=== PATIENT | female | born 1995 | race American Indian/Alaskan Native ===

== ENCOUNTER 2018-01-16 23:47 | Emergency (ER) | payer SELFPAY ==
[2018-01-17] VITALS: RESP 18; O2SAT 98
[2018-01-17] MEDS ORDERED: Acetaminophen 650mg/20.3ml solution UD PO STA (00:16)
--- NOTE | 2018-01-17 00:50 | ED PDOC ---
Arrival/HPI - General Historian: Patient - History of Present Illness Time/Duration: > month Symptom Onset: Gradual Symptom Course: Unchanged, Worsening Quality: Aching, Pressure, Tightness Severity Level: 6 Activities at Onset: Rest Context: Home <Yara Salmeron - Last Filed: 01/17/18 02:30> <Jessica Alejo - Last Filed: 01/17/18 06:47> - General Chief Complaint: ENT Problem Time Seen by Provider: 01/17/18 00:14 - History of Present Illness Narrative History of Present Illness (Text): 01/17/18 00:44 Pt is a 22 yr old female who presents to the ED c/o sore and swollen throat and fever x 3 months. Pt was evaluated by her PMD 3 months ago and was given azithromycin x 5 days which brought mild relief but continued to have throat irritation that waxed and waned. Pt continued to have swelling and sore throat, was placed on Augmentin 875mg x 10 days. Pt is currently on Day 3 BID but has vomited one of the doses this morning. Pt also reports headache at times, bilateral ear pain, and nausea. Denies, chest pain, sob, diarrhea, dyspnea, drooling, inability to eat or drink, change in bladder or bowel. (Yara Salmeron) Past Medical History - Provider Review Nursing Documentation Reviewed: Yes - Travel History Have you recently traveled outside [place] w/in the past 3 mons?: No - Psychiatric Hx Substance Use: No <Yara Salmeron - Last Filed: 01/17/18 02:30> Family/Social History - Physician Review Nursing Documentation Reviewed: Yes Family/Social History: Unknown Family HX Smoking Status: Never Smoked Hx Alcohol Use: No Hx Substance Use: No <Yara Salmeron - Last Filed: 01/17/18 02:30> Allergies/Home Meds <Yara Salmeron - Last Filed: 01/17/18 02:30> <Jessica Alejo - Last Filed: 01/17/18 06:47> Allergies/Adverse Reactions: Allergies No Known Allergies Allergy (Verified 01/16/18 23:58) Home Medications: Home Meds Medication Instructions Recorded Confirmed Amoxicillin/Clavulanate [Augmentin 1 tab PO BID 01/16/18 01/16/18 875 MG-125 MG] Review of Systems - Review of Systems Constitutional: Normal, Fatigue, Fevers Eyes: Normal ENT: Normal, Sore Throat, Rhinorrhea, Sinus Congestion. absent: Hearing Changes , Tinnitus, TMJ Pain Respiratory: Normal, Cough. absent: SOB Cardiovascular: Normal, Chest Pain. absent: Palpitations Gastrointestinal: Normal, Nausea, Vomiting, Appetite Changes. absent: Abdominal Pain, Stool Changes, Constipation, Diarrhea Genitourinary Female: Normal Musculoskeletal: Normal. absent: Arthralgias Skin: Normal Neurological: Normal, Headache. absent: Dizziness Endocrine: Normal Hemo/Lymphatic: Normal Psychiatric: Normal <Yara Salmeron L - Last Filed: 01/17/18 02:30> Physical Exam Vital Signs Reviewed: Yes Temperature: Febrile Blood Pressure: Normal Respiratory Rate: Normal Appearance: Positive for: Well-Appearing, Non-Toxic, Comfortable Pain Distress: Moderate Mental Status: Positive for: Alert and Oriented X 3 - Systems Exam Head: Present: Atraumatic, Normocephalic Pupils: Present: PERRL Extroacular Muscles: Present: EOMI Conjunctiva: Present: Normal Mouth: Present: Moist Mucous Membranes Pharnyx: Present: ERYTHEMA, EXUDATE, TONSILS ENLARGED, Peritonsilar Swelling, Muffled/Hoarse Voice. No: Uvular Deviation Neck: Present: Normal Range of Motion Respiratory/Chest: Present: Clear to Auscultation, Good Air Exchange. No: Respiratory Distress, Accessory Muscle Use, Wheezes, Decreased Breath Sounds Cardiovascular: Present: Regular Rate and Rhythm, Normal S1, S2. No: Murmurs Abdomen: Present: Normal Bowel Sounds. No: Tenderness, Distention, Peritoneal Signs Back: Present: Normal Inspection Upper Extremity: Present: Normal Inspection, Normal ROM, NORMAL PULSES. No: Cyanosis, Edema Lower Extremity: Present: Normal Inspection, NORMAL PULSES, Normal ROM. No: Edema Neurological: Present: GCS=15, CN II-XII Intact, Speech Normal Skin: Present: Warm, Dry, Normal Color. No: Rashes Lymphatic: Present: Cervical Adenopathy Psychiatric: Present: Alert, Oriented x 3, Normal Insight, Normal Concentration <Yara Salmeron L - Last Filed: 01/17/18 02:30> Vital Signs Temp Pulse Resp BP Pulse Ox 01/17/18 04:19 98.6 F 73 18 121/71 98 01/17/18 03:00 98.6 F 01/17/18 00:30 100.2 F H 01/16/18 23:58 100.2 F H 86 18 113/57 L 98 Medical Decision Making <Yara Salmeron - Last Filed: 01/17/18 02:30> <Jessica Alejo - Last Filed: 01/17/18 06:47> ED Course and Treatment: 01/17/18 00:53 Impression Pt is a 22 yr old female who presents to the ED c/o sore and swollen throat and fever x 3 months. Working Dx: Ludwigs, peritonsilar abscess, tonsillitis, pharyngitis Plan CTA neck soft tissue to r/o Ludwigs Angina labs and UA decadron 10mg IM tylenol 650 poc hcg Progress Note 01/17/18 01:19 No change in status as per pt; decadron and tylenol given awaiting results of CTA UA pos for UTI Clindamycin IM stat for broader coverage of exudative tonsillitis 01/17/18 02:[address] Alejo Monospot and Rapid Strep ordered at his request (Yara Salmeron) 01/17/18 02:30: Case endorsed to me by ENRIQUE Salmeron. Pending Monospot and Rapid Strep Test results, reassessment, disposition. CT Neck With Intravenous Contrast EXAM DATE/TIME:01/17/2018 12:22 AM Dictated and Authenticated by: David Mc MD 01/17/2018 2:57 AM Eastern Time ([place] & [place]) CLINICAL HISTORY: 22 years old, female; Pain; Neck pain and painful swallowing and throat pain; Additional info: R/O ludwigs angina TECHNIQUE: Axial computed tomography images of the neck with intravenous contrast. All CT scans at this facility use at least one of these dose optimization techniques: automated exposure control; mA and/or kV adjustment per patient size (includes targeted exams where dose is matched to clinical indication); or iterative reconstruction. COMPARISON: No relevant prior studies available. FINDINGS: Oropharynx: Bilateral enlarged tonsils with "tiger stripe" pattern consistent with phlegmon but no abscess. Hypopharynx: Unremarkable. Larynx: Unremarkable. Normal epiglottis. Trachea: Unremarkable. Retropharyngeal space: Unremarkable. Submandibular/parotid glands: Unremarkable. Glands are normal in size. Thyroid: Unremarkable. No enlarged or calcified nodules. Bones/joints: No acute fracture. Soft tissues: Unremarkable. Vasculature: No acute findings. Lymph nodes: Bilateral prominent level II lymph nodes in bilateral level V nodes which are likely reactive. Lung apices: Unremarkable as visualized. IMPRESSION: Bilateral enlarged tonsils with "tiger stripe" pattern consistent with phlegmon but no abscess. 01/17/18 04:02 On re-evaluation, patient feels better and is in no acute distress. Will treat patient for UTI. I have discussed the results and plan with the patient, who expresses understanding. Patient in agreement with plan to be discharged home. Patient is stable for discharge. Patient was instructed to follow up with physician or return if symptoms worsen or new concerning symptoms arise. (Jessica Alejo) - Lab Interpretations Lab Results: 01/17/18 00:45 01/17/18 00:45 Lab Results 01/17/18 03:15: Grp A Beta Strep Ag Negative 01/17/18 00:45: Sodium 139, Potassium 3.6, Chloride 99, Carbon Dioxide 24, Anion Gap 19, BUN 7, Creatinine 0.7, Est GFR ( Amer) > 60, Est GFR (Non- Af Amer) > 60, Random Glucose 100, Calcium 9.5, Total Bilirubin 1.1, AST 26, ALT 16, Alkaline Phosphatase 69, Total Protein 8.7 H, Albumin 4.7, Globulin 4.0 , Albumin/Globulin Ratio 1.2 01/17/18 00:45: Urine Color Yellow, Urine Appearance Sl cloudy, Urine pH 6.5, Ur Specific [place] 1.020, Urine Protein 100 H, Urine Glucose (UA) Negative, Urine Ketones 40 H, Urine Blood Large H, Urine Nitrate Negative, Urine Bilirubin Small H, Urine Urobilinogen 1.0 H, Ur Leukocyte Esterase Small H, Urine RBC Tntc, Urine WBC 15 - 20, Ur Epithelial Cells 4 - 5, Urine Bacteria Many, Urine Other Fiber 01/17/18 00:45: WBC 9.4, RBC 5.26, Hgb 11.2 L, Hct 35.1 L, MCV 66.7 L, MCH 21.3 L, MCHC 31.9, RDW 14.0, Plt Count 189, MPV 9.1, Gran % 70.9 H, Lymph % (Auto) 14.1 L, [place] % (Auto) 14.7 H, Eos % (Auto) 0.2 L, Baso % (Auto) 0.1, Gran # 6.64 H, Lymph # (Auto) 1.3, [place] # (Auto) 1.4 H, Eos # (Auto) 0.0, Baso # (Auto ) 0.01 - RAD Interpretation Radiology Orders: 01/17/18 00:22 NECK SOFT TISSUE W/CONTRAST [CT] Stat - Medication Orders Current Medication Orders: Discontinued Medications Acetaminophen (Tylenol 650mg/20.3ml Solution Ud) 650 mg PO STAT STA Stop: 01/17/18 00:17 Last Admin: 01/17/18 00:30 Dose: 650 mg MAR Pain/Vitals Document 01/17/18 00:30 AD (Rec: 01/17/18 00:50 AD [id number]) Vitals Temperature (97.6 F-99.6 F) 100.2 F Temperature Source Oral Clindamycin Phosphate (Cleocin) 300 mg IM STAT STA PRN Reason: Protocol Stop: 01/17/18 01:54 Last Admin: 01/17/18 02:10 Dose: 300 mg IM Administration Charges Document 01/17/18 02:10 AD (Rec: 01/17/18 02:36 AD [id number]) Injection Site MAR Injection Site Left Deltoid Charges for Administration # of IM Administrations 1 Dexamethasone (Decadron Inj) 10 mg IM STAT STA Stop: 01/17/18 00:15 Last Admin: 01/17/18 00:30 Dose: 10 mg IM Administration Charges Document 01/17/18 00:30 AD (Rec: 01/17/18 00:50 AD [id number]) Injection Site MAR Injection Site Right Deltoid Charges for Administration # of IM Administrations 1 Disposition/Present on Arrival - Present on Arrival Any Indicators Present on Arrival: Yes History of DVT/PE: No History of Uncontrolled Diabetes: No Urinary Catheter: No History of Decub. Ulcer: No History Surgical Site Infection Following: None - Disposition Have Diagnosis and Disposition been Completed?: Yes <Yara Salmeron - Last Filed: 01/17/18 02:30> - Disposition Have Diagnosis and Disposition been Completed?: Yes Disposition Time: 06:47 Patient Plan: Discharge <eJssica Alejo - Last Filed: 01/17/18 06:47> - Disposition Diagnosis: UTI (urinary tract infection), Acute bacterial tonsillitis, Pharyngitis Disposition: HOME/ ROUTINE Condition: FAIR Discharge Instructions (ExitCare): Urinary Tract Infections in Adults, Sore Throat, Adult (DC), Bacterial Upper Respiratory Infection, Adult Print Language: BURKIN[place] Prescriptions: Cephalexin [Keflex] 500 mg PO QID #40 capsule Clindamycin [Cleocin] 300 mg PO QID 10 Days #40 cap Ibuprofen [Motrin Tab] 400 mg PO Q6 #20 tab Nitrofurantoin Macrocrystals [Macrobid] 100 mg PO BID 7 Days #14 cap Referrals: Beata Carrasco MD [Primary Care Provider] - Follow up with primary Forms: [employer] (Yi)
[2018-01-17 00:59] LABS: BASO # 0.01 K/mm3 (0.0-2.0); BASO % 0.1 % (0.0-3.0); EOS % 0.2 % (1.5-5.0); GRAN # 6.64 (1.4-6.5); GRAN % 70.9 % (50.0-68.0); HEMOGLOBIN 11.2 g/dL (12.0-16.0); LYMPH # 1.3 (1.2-3.4); LYMPH % 14.1 % (22.0-35.0); MEAN CELL VOLUME 66.7 fl (80.0-105.0); MEAN CORPUSCULAR HEMOGLOBIN 21.3 pg (25.0-35.0); MEAN CORPUSCULAR HGB CONC 31.9 g/dl (31.0-37.0); MEAN PLATELET VOLUME 9.1 fl (7.0-11.0); MONO # 1.4 (0.1-0.6); MONO % 14.7 % (1.0-6.0); RBC 5.26 10^6/uL (3.5-6.1); WHITE BLOOD COUNT 9.4 10^3/ul (4.5-11.0)
[2018-01-17 01:06] LABS: ALB/GLOB RATIO 1.2 (1.1-1.8); ALBUMIN 4.7 g/dL (3.0-4.8); ALT/SGPT 16 U/L (7-56); AST/SGOT 26 U/L (14-36); BLOOD UREA NITROGEN 7 mg/dL (7-21); CALCIUM 9.5 mg/dL (8.4-10.5); GFR AFRICAN-AMERICAN > 60; GFR NON-AFRICAN AMERICAN > 60
[2018-01-17 01:08] LABS: PH,URINE 6.5 (4.7-8.0); URINE BILIRUBIN SMALL (NEGATIVE); URINE BLOOD LARGE (NEGATIVE); URINE GLUCOSE (UA) NEGATIVE (NEGATIVE); URINE LEUKOCYTE ESTERASE SMALL Leu/uL (NEGATIVE); URINE PROTEIN 100 mg/dL (<30 mg/dL)
[2018-01-17 01:09] LABS: URINE APPEARANCE SL CLOUDY (CLEAR); URINE COLOR YELLOW (YELLOW)
[2018-01-17] MEDS ORDERED: Iohexol 350 MG/100 ML VIAL ONE (01:09)
[2018-01-17 01:49] LABS: URINE BACTERIA MANY (NEG); URINE RBC TNTC /hpf (0-2); URINE WBC 15 - 20 /hpf (0-6)
[2018-01-17] MEDS ORDERED: Clindamycin 150 mg/mL Inj IM STA (01:53)
[2018-01-17 04:26] VITALS: TEMP 98.6
[2018-01-17 04:28] VITALS: BP 121/71; PULSE 73
--- NOTE | 2018-01-17 09:56 | CT ---
PROCEDURE: CT NECK WITH CONTRAST HISTORY: R/O Remigio's Angina COMPARISON: None TECHNIQUE: CT of the neck with intravenous contrast. Coronal and sagittal reformats generated. Intravenous contrast dose: 100 cc Omnipaque 350 Radiation dose: DLP 321.99 mGy-cm This CT exam was performed using one or more of the following dose reduction techniques: Automated exposure control, adjustment of the mA and/or kV according to patient size, and/or use of iterative reconstruction technique. FINDINGS: NASOPHARYNX: Unremarkable. SUPRAHYOID NECK: Diffuse tonsillar enlargement, contrast-enhancing characteristics indicative of an acute inflammatory process. No discrete peritonsillar abscess. No prevertebral soft tissue abnormality. INFRAHYOID NECK: Unremarkable larynx, hypopharynx, and supraglottic space. Vocal cords intact. MASS: None. GLANDS: Parotid and submandibular glands unremarkable. Normal size thyroid gland, without nodule. LYMPH NODES: Reactive lymphadenopathy in the neck, level 2A lymph nodes. CERVICAL SPINE: No fracture or focal lesion. VASCULAR STRUCTURES: OTHER FINDINGS: None. IMPRESSION: Severe inflammatory changes affecting lingual and palatine tonsils bilaterally without focal, discrete peritonsillar abscess. Concordant results (preliminary interpretation) provided by [facility]. Procedure Completed: 01:21 Preliminary ([facility]) Report: Dictated and Authenticated: 02:57 Final Interpretation: 09:55 January 17, 2018.
== END 2018-01-17 04:19 | disposition home or self-care (01) ==
LOC: ED 23:47
DX: J03.90 Acute tonsillitis, unspecified (principal); N39.0 Urinary tract infection, site not specified
CPT/HCPCS: 70491; 80053; 81001; 85025; 86308; 87070; 87086; 87430; 96372; 99284; J1100; Q9967